=== PATIENT | female | born 2000 | race Caucasian/White ===

== ENCOUNTER 2021-03-25 14:37 | Emergency (ER) | payer OTHER, MEDICAID ==
[~2021-03-25] VITALS: Ht 170.2 cm; Wt 107.0 kg
[2021-03-25] MEDS ORDERED: ondansetron/PF 4mg/2ml inj IV ONE (15:00)
[2021-03-25 15:33] LABS: BASOPHILS # (AUTO) 0.1 X10'3 (0-0.2); BASOPHILS % (AUTO) 0.9 % (0-1); EOSINOPHILS % (AUTO) 0.2 % (0-6); HEMATOCRIT 37.3 % (35.0-45.0); HEMOGLOBIN 12.4 g/dl (12.0-16.0); LYMPHOCYTES # (AUTO) 1.2 X10'3 (1.1-4.8); LYMPHOCYTES % (AUTO) 7.9 % (21-51); MEAN CORPUSCULAR HEMOGLOBIN 26.1 PG (27.0-31.0); MEAN CORPUSCULAR HGB CONC 33.3 g/dL (33.0-36.5); MEAN CORPUSCULAR VOLUME 78.5 FL (78-98); MEAN PLATELET VOLUME 10.1 FL (7.4-10.4); MONOCYTES # (AUTO) 0.6 X10'3 (0-0.9); MONOCYTES % (AUTO) 4.3 % (2-12); NEUTROPHILS # (AUTO) 12.7 X10'3 (1.8-7.7); NEUTROPHILS % (AUTO) 86.7 % (42-75); PLATELET COUNT 231 X10'3 (140-440); RED BLOOD COUNT 4.76 X10'6 (4.20-5.60); RED CELL DISTRIBUTION WIDTH 15.8 % (11.5-14.5); WHITE BLOOD COUNT 14.6 X10'3 (4.5-11.0)
[2021-03-25 15:38] LABS: ALANINE AMINOTRANSFERASE 59 U/L (12-78); ALBUMIN 3.9 G/DL (3.4-5.0); ALBUMIN/GLOBULIN RATIO 1.1 (1.1-1.5); ALKALINE PHOSPHATASE 56 IU/L (20-180); ANION GAP 11 (8-16); BILIRUBIN,TOTAL 0.6 MG/DL (0.1-1.0); BLOOD UREA NITROGEN 12 MG/DL (7-18); BUN/CREATININE RATIO 15.8 (6.6-38.0); CALCIUM 8.9 MG/DL (8.5-10.1); CHLORIDE 105 MMOL/L (99-107); CREATININE 0.76 MG/DL (0.40-0.90); GLUCOSE 88 MG/DL (70-104); LIPASE < 50 U/L (73-393); SODIUM 144 MMOL/L (135-145); TOTAL PROTEIN 7.5 G/DL (6.4-8.2); eGFR > 90 ML/MIN
[2021-03-25 15:47] LABS: ASPARTATE AMINO TRANSFERASE 39 U/L (10-37)
[2021-03-25 15:48] LABS: POTASSIUM 3.7 MMOL/L (3.5-5.1)
[2021-03-25 16:06] LABS: URINE HCG NEGATIVE (NEG)
[2021-03-25 16:07] LABS: CLARITY,URINE TURBID (Clear); COLOR,URINE YELLOW (Yellow); GLUCOSE, URINE NEGATIVE (Neg); KETONES,URINE >=80 mg/dl (Neg); LEUKOCYTE ESTERASE ,URINE NEGATIVE (Neg); NITRITES, URINE NEGATIVE (Neg); OCCULT BLOOD,URINE NEGATIVE (Neg); PH,URINE 8.5 (4.8-8.0); PROTEIN,URINE TRACE mg/dl (Neg)
[2021-03-25 16:11] LABS: UA COLLECTION TYPE CLN CATCH MIDSTREAM
[2021-03-25 16:13] LABS: AMORPHOUS PHOSPHATES 3+; BACTERIA,URINE 2+ /HPF (Neg); MUCUS STRANDS MANY /LPF (Neg); RBC,URINE NONE SEEN /HPF (0-2); SQUAMOUS EPITHELIAL CELL,UR MANY /LPF (FEW); WBC,URINE 0-4 /HPF (0-4)
[2021-03-25] MEDS ORDERED: ketorolac tromethamine 15mg/ml inj. IM ONE (16:30)
[2021-03-25 17:03] VITALS: BP 126/81
[2021-03-25] MEDS ORDERED: mag hydrox/Alum hydrox/simeth 30ml oral suspension PO ONE (18:20)
[2021-03-25] MEDS ORDERED: LIDOcaine Viscous 15ml cup MM PRN (18:20)
[2021-03-25] MEDS ORDERED: acetaminophen 325mg tablet PO ONE (18:20)
[2021-03-25] MEDS ORDERED: OMEP40CA21 PO (18:38)
[2021-03-25] MEDS ORDERED: diphenhydrAMINE 50 mg/ml inj IV ONE (19:00)
[2021-03-25] MEDS ORDERED: famotidine/PF 10 mg/ml inj IV ONE (19:00)
[2021-03-26] MEDS ORDERED: PRED20TA PO (03:15)
[2021-03-26] MEDS ORDERED: EPIN0.3P3 IM (03:15)
[2021-03-26] MEDS ORDERED: ONDA4TAB6 PO (03:16)
== END 2021-03-25 19:25 | disposition home or self-care (01) ==
LOC: ER 14:38
DX: R10.31 Right lower quadrant pain (principal); R11.10 Vomiting, unspecified; K21.9 Gastro-esophageal reflux disease without esophagitis; G89.29 Other chronic pain; F12.90 Cannabis use, unspecified, uncomplicated; Z79.899 Other long term (current) drug therapy
CPT/HCPCS: 74176; 76856; 80053; 81001; 81025; 83690; 85025; 93976; 96372; 96374; 96375; 99285; J1200; J1885; J2405

== ENCOUNTER 2021-03-26 01:19 | Emergency (ER) | payer OTHER, MEDICAID ==
[~2021-03-26] VITALS: Ht 170.2 cm; Wt 105.0 kg
[~2021-03-26 01:19] MED LIST: OMEP40CA21 PO
[2021-03-26] MEDS ORDERED: epiNEPHrine 1 mg/ml inj IM STA (01:23)
[2021-03-26] MEDS ORDERED: dexamethasone 4mg tablet PO ONE (01:25)
[2021-03-26 02:52] VITALS: BP 123/53
[2021-03-26] MEDS ORDERED: PRED20TA PO (03:15)
[2021-03-26] MEDS ORDERED: EPIN0.3P3 IM (03:15)
[2021-03-26] MEDS ORDERED: ONDA4TAB6 PO (03:16)
== END 2021-03-26 03:23 | disposition home or self-care (01) ==
LOC: ER 01:19
DX: T78.2XXA Anaphylactic shock, unspecified, initial encounter (principal); L50.9 Urticaria, unspecified; K21.9 Gastro-esophageal reflux disease without esophagitis; G89.29 Other chronic pain; F12.90 Cannabis use, unspecified, uncomplicated; Z79.899 Other long term (current) drug therapy; X58.XXXA Exposure to other specified factors, initial encounter; Y93.89 Activity, other specified; Y92.89 Other specified places as the place of occurrence of the external cause; Y99.8 Other external cause status
CPT/HCPCS: 96372; 99291; J0171

== ENCOUNTER 2021-03-26 03:54 | Emergency (ER) | payer OTHER, MEDICAID ==
[~2021-03-26] VITALS: Ht 170.2 cm; Wt 106.8 kg
[~2021-03-26 03:54] MED LIST changes: +EPIN0.3P3 IM; +ONDA4TAB6 PO; +PRED20TA PO
[2021-03-26 04:09] VITALS: BP 128/80
[2021-03-26] MEDS ORDERED: epiNEPHrine 1 mg/ml inj IM STA (04:57)
--- NOTE | 2021-03-26 06:45 | NUR ---
Patient resting quietly; friend at bedside. No rash or hives noted on face or back.
== END 2021-03-26 08:10 | disposition home or self-care (01) ==
LOC: ER 03:54
DX: L50.0 Allergic urticaria (principal); K21.9 Gastro-esophageal reflux disease without esophagitis; G89.29 Other chronic pain; F12.90 Cannabis use, unspecified, uncomplicated; Z88.8 Allergy status to other drugs, medicaments and biological substances; Z79.899 Other long term (current) drug therapy
CPT/HCPCS: 96372; 99291; J0171

== ENCOUNTER 2021-03-26 08:49 | Emergency (ER) | payer OTHER, MEDICAID ==
[~2021-03-26] VITALS: Ht 170.2 cm; Wt 106.8 kg
[2021-03-26 09:01] VITALS: BP 139/78
== END 2021-03-26 09:17 | disposition home or self-care (01) ==
LOC: ER 08:50
DX: L50.0 Allergic urticaria (principal); R20.8 Other disturbances of skin sensation; K21.9 Gastro-esophageal reflux disease without esophagitis; G89.29 Other chronic pain; F12.90 Cannabis use, unspecified, uncomplicated; Z88.8 Allergy status to other drugs, medicaments and biological substances; Z79.899 Other long term (current) drug therapy
CPT/HCPCS: 93005; 99283

== ENCOUNTER 2021-06-12 10:27 | Emergency (ER) | payer MEDICAID, OTHER ==
[~2021-06-12] VITALS: Ht 170.2 cm; Wt 113.2 kg
[~2021-06-12 10:27] MED LIST changes: -OMEP40CA21 PO; -PRED20TA PO
[2021-06-12 10:31] VITALS: BP 145/88
[2021-06-12] MEDS ORDERED: mag hydrox/Alum hydrox/simeth 30ml oral suspension PO ONE (12:30)
[2021-06-12] MEDS ORDERED: famotidine 20mg tablet PO ONE (12:30)
[2021-06-12] MEDS ORDERED: ondansetron 4mg rapidly disintigrating tab PO ONE (12:30)
--- NOTE | 2021-06-12 12:58 | NUR ---
Patient states that she takes famotidine daily and is not allergic to medication.
[2021-06-12 13:09] LABS: BASOPHILS % (AUTO) 0.1 % (0-1); EOSINOPHILS % (AUTO) 0.2 % (0-6); HEMATOCRIT 36.4 % (35.0-45.0); HEMOGLOBIN 11.9 g/dl (12.0-16.0); LYMPHOCYTES # (AUTO) 1.6 X10'3 (1.1-4.8); MEAN CORPUSCULAR HEMOGLOBIN 26.1 PG (27.0-31.0); MEAN CORPUSCULAR HGB CONC 32.8 g/dL (33.0-36.5); MEAN CORPUSCULAR VOLUME 79.5 FL (78-98); MEAN PLATELET VOLUME 9.6 FL (7.4-10.4); MONOCYTES # (AUTO) 0.5 X10'3 (0-0.9); MONOCYTES % (AUTO) 5.7 % (2-12); NEUTROPHILS # (AUTO) 6.6 X10'3 (1.8-7.7); PLATELET COUNT 259 X10'3 (140-440); RED BLOOD COUNT 4.58 X10'6 (4.20-5.60); RED CELL DISTRIBUTION WIDTH 15.3 % (11.5-14.5); WHITE BLOOD COUNT 8.7 X10'3 (4.5-11.0)
[2021-06-12 13:14] LABS: ALANINE AMINOTRANSFERASE 22 U/L (12-78); ALBUMIN 3.6 G/DL (3.4-5.0); ALKALINE PHOSPHATASE 58 IU/L (46-116); ANION GAP 9 (8-16); ASPARTATE AMINO TRANSFERASE 14 U/L (10-37); BILIRUBIN,TOTAL 0.3 MG/DL (0.1-1.0); BLOOD UREA NITROGEN 9 MG/DL (7-18); BUN/CREATININE RATIO 15.5 (6.6-38.0); CALCIUM 8.9 MG/DL (8.5-10.1); CHLORIDE 108 MMOL/L (99-107); CREATININE 0.58 MG/DL (0.40-0.90); GLUCOSE 86 MG/DL (70-104); LIPASE 105 U/L (73-393); POTASSIUM 3.6 MMOL/L (3.5-5.1); SODIUM 143 MMOL/L (135-145); TOTAL CARBON DIOXIDE 25.7 MMOL/L (24-32); TOTAL PROTEIN 7.2 G/DL (6.4-8.2); eGFR > 90 ML/MIN
[2021-06-12 13:15] LABS: CLARITY,URINE SLIGHTLY CLOUDY (Clear); COLOR,URINE YELLOW (Yellow); GLUCOSE, URINE NEGATIVE (Neg); KETONES,URINE TRACE mg/dl (Neg); LEUKOCYTE ESTERASE ,URINE NEGATIVE (Neg); NITRITES, URINE NEGATIVE (Neg); OCCULT BLOOD,URINE NEGATIVE (Neg); PH,URINE 6.5 (4.8-8.0); PROTEIN,URINE NEGATIVE (Neg); UROBILINOGEN,URINE 0.2 E.U/dL (0.2-1.0)
[2021-06-12 13:20] LABS: UA COLLECTION TYPE CLN CATCH MIDSTREAM
[2021-06-12 13:22] LABS: MUCUS STRANDS MANY /LPF (Neg); SQUAMOUS EPITHELIAL CELL,UR MANY /LPF (FEW)
[2021-06-12 13:23] LABS: BACTERIA,URINE 1+ /HPF (Neg); RBC,URINE 0-2 /HPF (0-2); WBC,URINE 0-4 /HPF (0-4)
[2021-06-12] MEDS ORDERED: ONDA4TAB12 PO (13:58)
[2021-06-12] MEDS ORDERED: FAMO20TA82 PO (14:09)
== END 2021-06-12 14:11 | disposition home or self-care (01) ==
LOC: ER 10:28
DX: S40.021A Contusion of right upper arm, initial encounter (principal); K29.00 Acute gastritis without bleeding; K21.9 Gastro-esophageal reflux disease without esophagitis; G89.29 Other chronic pain; F12.90 Cannabis use, unspecified, uncomplicated; Z88.8 Allergy status to other drugs, medicaments and biological substances; Z79.899 Other long term (current) drug therapy; Y04.0XXA Assault by unarmed brawl or fight, initial encounter; Y93.89 Activity, other specified; Y92.89 Other specified places as the place of occurrence of the external cause; Y99.0 Civilian activity done for income or pay
CPT/HCPCS: 36415; 80053; 81001; 83690; 85025; 99283

== ENCOUNTER 2021-06-14 08:57 | Emergency (ER) | payer OTHER ==
[~2021-06-14] VITALS: Ht 170.2 cm; Wt 113.6 kg
[~2021-06-14 08:57] MED LIST changes: +FAMO20TA82 PO; +ONDA4TAB12 PO
[2021-06-14] MEDS ORDERED: normal saline 1000ML IV soln IVB ONE ×2 (09:25→10:40)
[2021-06-14 10:00] LABS: BASOPHILS % (AUTO) 0.2 % (0-1); EOSINOPHILS # (AUTO) 0.1 X10'3 (0-0.9); EOSINOPHILS % (AUTO) 0.6 % (0-6); HEMATOCRIT 37.7 % (35.0-45.0); HEMOGLOBIN 12.4 g/dl (12.0-16.0); LYMPHOCYTES # (AUTO) 1.5 X10'3 (1.1-4.8); MEAN CORPUSCULAR HGB CONC 32.9 g/dL (33.0-36.5); MEAN CORPUSCULAR VOLUME 79.1 FL (78-98); MEAN PLATELET VOLUME 9.4 FL (7.4-10.4); MONOCYTES # (AUTO) 0.5 X10'3 (0-0.9); MONOCYTES % (AUTO) 5.3 % (2-12); NEUTROPHILS # (AUTO) 7.9 X10'3 (1.8-7.7); NEUTROPHILS % (AUTO) 78.9 % (42-75); PLATELET COUNT 293 X10'3 (140-440); RED BLOOD COUNT 4.77 X10'6 (4.20-5.60); RED CELL DISTRIBUTION WIDTH 15.2 % (11.5-14.5)
[2021-06-14 10:19] LABS: ALANINE AMINOTRANSFERASE 25 U/L (12-78); ALBUMIN 3.7 G/DL (3.4-5.0); ALKALINE PHOSPHATASE 58 IU/L (46-116); ANION GAP 11 (8-16); ASPARTATE AMINO TRANSFERASE 19 U/L (10-37); BILIRUBIN,TOTAL 0.3 MG/DL (0.1-1.0); BLOOD UREA NITROGEN 8 MG/DL (7-18); BUN/CREATININE RATIO 13.3 (6.6-38.0); CALCIUM 8.8 MG/DL (8.5-10.1); CHLORIDE 108 MMOL/L (99-107); ETHANOL < 0.010 GM/DL (0.0-0.010); GLUCOSE 108 MG/DL (70-104); LIPASE 175 U/L (73-393); POTASSIUM 3.6 MMOL/L (3.5-5.1); SODIUM 143 MMOL/L (135-145); TOTAL CARBON DIOXIDE 23.7 MMOL/L (24-32); TOTAL PROTEIN 7.3 G/DL (6.4-8.2); eGFR > 90 ML/MIN
[2021-06-14] MEDS ORDERED: haloperidol lactate 5mg/ml inj IM ONE (10:40)
[2021-06-14] MEDS ORDERED: ondansetron/PF 4mg/2ml inj IV ONE (10:40)
[2021-06-14] MEDS ORDERED: ketorolac trometh. 30mg/ml inj. IV ONE (10:40)
[2021-06-14] MEDS ORDERED: LORazepam 2 mg/ml vial IV ONE (10:40)
[2021-06-14] MEDS ORDERED: diphenhydrAMINE 50 mg/ml inj IV ONE (10:40)
--- NOTE | 2021-06-14 11:14 | NUR ---
patient asleep, visitor at bedside.
--- NOTE | 2021-06-14 11:34 | NUR ---
DR ROBLERO MADE AWARE OF PATIENT CONTINUED COMPLAINT OF ABD PAIN 11/09. PATIENT PALE, DIAPHORETIC, VISITOR AT BEDSIDE.
[2021-06-14] MEDS ORDERED: sucralfate 1gm/10ml UD suspension PO STA (12:06)
[2021-06-14] MEDS ORDERED: LIDOcaine Viscous 15ml cup MM ONE (12:10)
[2021-06-14] MEDS ORDERED: mag hydrox/Alum hydrox/simeth 30ml oral suspension PO ONE (12:10)
[2021-06-14] MEDS: sucralfate 1 gm tablet PO STA ×2 (12:16→12:22)
[2021-06-14] MEDS ORDERED: sucralfate 1 gm tablet PO ONE (12:20)
[2021-06-14 13:48] VITALS: BP 110/48
[2021-06-15] MEDS ORDERED: EPIN0.3P3 IM (17:55)
== END 2021-06-14 13:50 | disposition home or self-care (01) ==
LOC: ER 08:58
DX: R11.15 Cyclical vomiting syndrome unrelated to migraine (principal); K21.9 Gastro-esophageal reflux disease without esophagitis; G89.29 Other chronic pain; R19.7 Diarrhea, unspecified; R10.30 Lower abdominal pain, unspecified; F12.90 Cannabis use, unspecified, uncomplicated; Z88.8 Allergy status to other drugs, medicaments and biological substances; Z79.899 Other long term (current) drug therapy
CPT/HCPCS: 36415; 80053; 80320; 83690; 85025; 96361; 96372; 96374; 96375; 99284; J1200; J1630; J1885; J2060; J2405; J7030

== ENCOUNTER 2021-06-15 15:56 | Emergency (ER) | payer OTHER ==
[~2021-06-15] VITALS: Ht 170.2 cm; Wt 136.0 kg
[2021-06-15 15:56] VITALS: BP 123/68
[2021-06-15] MEDS ORDERED: EPIN0.3P3 IM (17:55)
[2021-06-16] MEDS ORDERED: LORA-269 PO (17:58)
== END 2021-06-15 18:21 | disposition home or self-care (01) ==
LOC: ER 15:56
DX: G24.8 Other dystonia (principal); T43.225A Adverse effect of selective serotonin reuptake inhibitors, initial encounter; Y92.89 Other specified places as the place of occurrence of the external cause; K21.9 Gastro-esophageal reflux disease without esophagitis; G89.29 Other chronic pain; M54.9 Dorsalgia, unspecified; F12.10 Cannabis abuse, uncomplicated; Z88.8 Allergy status to other drugs, medicaments and biological substances; Z88.5 Allergy status to narcotic agent; Z79.899 Other long term (current) drug therapy
CPT/HCPCS: 99284

== ENCOUNTER 2021-06-16 17:04 | Emergency (ER) | payer OTHER ==
[~2021-06-16] VITALS: Ht 170.2 cm; Wt 113.6 kg
[2021-06-16] MEDS ORDERED: diphenhydrAMINE 25mg capsule PO ONE (17:15)
[2021-06-16] MEDS ORDERED: LORazepam 2 mg/ml vial IV ONE (17:15)
[2021-06-16 17:16] VITALS: BP 151/102
[2021-06-16] MEDS ORDERED: benztropine 1mg tablet PO STA (17:23)
[2021-06-16] MEDS ORDERED: LORazepam 1 MG tablet PO ONE (17:35)
[2021-06-16] MEDS ORDERED: LORA-269 PO (17:58)
== END 2021-06-16 18:33 | disposition home or self-care (01) ==
LOC: ER 17:05
DX: F41.9 Anxiety disorder, unspecified (principal); G24.9 Dystonia, unspecified; F32.A Depression, unspecified; R06.02 Shortness of breath; K21.9 Gastro-esophageal reflux disease without esophagitis; F12.90 Cannabis use, unspecified, uncomplicated; G89.29 Other chronic pain; Z88.8 Allergy status to other drugs, medicaments and biological substances; Z79.899 Other long term (current) drug therapy
CPT/HCPCS: 99284; Q0163

== ENCOUNTER 2021-09-13 08:40 | Emergency (ER) | payer OTHER, BC ==
[~2021-09-13] VITALS: Ht 170.2 cm; Wt 112.3 kg
[~2021-09-13 08:40] MED LIST changes: +LORA-269 PO
[2021-09-13] MEDS ORDERED: normal saline 1000ML IV soln IVB ONE (10:10)
[2021-09-13 10:22] LABS: BASOPHILS % (AUTO) 0.2 % (0-1); EOSINOPHILS # (AUTO) 0.1 X10'3 (0-0.9); EOSINOPHILS % (AUTO) 0.8 % (0-6); HEMATOCRIT 36.7 % (35.0-45.0); HEMOGLOBIN 12.4 g/dl (12.0-16.0); LYMPHOCYTES # (AUTO) 1.6 X10'3 (1.1-4.8); LYMPHOCYTES % (AUTO) 16.3 % (21-51); MEAN CORPUSCULAR HEMOGLOBIN 26.6 PG (27.0-31.0); MEAN CORPUSCULAR HGB CONC 33.8 g/dL (33.0-36.5); MEAN CORPUSCULAR VOLUME 78.7 FL (78-98); MEAN PLATELET VOLUME 9.3 FL (7.4-10.4); MONOCYTES # (AUTO) 0.6 X10'3 (0-0.9); NEUTROPHILS # (AUTO) 7.5 X10'3 (1.8-7.7); NEUTROPHILS % (AUTO) 76.7 % (42-75); PLATELET COUNT 291 X10'3 (140-440); RED BLOOD COUNT 4.67 X10'6 (4.20-5.60); RED CELL DISTRIBUTION WIDTH 14.7 % (11.5-14.5); WHITE BLOOD COUNT 9.8 X10'3 (4.5-11.0)
[2021-09-13 10:34] LABS: ALANINE AMINOTRANSFERASE 15 U/L (12-78); ALBUMIN 3.8 G/DL (3.4-5.0); ALKALINE PHOSPHATASE 61 IU/L (46-116); ANION GAP 8 (8-16); ASPARTATE AMINO TRANSFERASE 13 U/L (10-37); BILIRUBIN,TOTAL 0.2 MG/DL (0.1-1.0); BLOOD UREA NITROGEN 8 MG/DL (7-18); BUN/CREATININE RATIO 12.5 (6.6-38.0); CALCIUM 9.4 MG/DL (8.5-10.1); CHLORIDE 106 MMOL/L (99-107); CREATININE 0.64 MG/DL (0.40-0.90); GLUCOSE 95 MG/DL (70-104); POTASSIUM 3.9 MMOL/L (3.5-5.1); SODIUM 141 MMOL/L (135-145); TOTAL PROTEIN 7.8 G/DL (6.4-8.2); eGFR > 90 ML/MIN
[2021-09-13 11:27] VITALS: BP 133/97
[2021-09-13] MEDS ORDERED: ONDA8TAB13 PO (11:36)
[2021-09-13] MEDS ORDERED: ONDA4TAB12 PO (14:44)
== END 2021-09-13 12:27 | disposition home or self-care (01) ==
LOC: ER 08:40
DX: K58.9 Irritable bowel syndrome, unspecified (principal); R11.2 Nausea with vomiting, unspecified; R19.7 Diarrhea, unspecified; K21.9 Gastro-esophageal reflux disease without esophagitis; G89.29 Other chronic pain; F12.90 Cannabis use, unspecified, uncomplicated; Z88.8 Allergy status to other drugs, medicaments and biological substances; Z79.899 Other long term (current) drug therapy
CPT/HCPCS: 36415; 80053; 85025; 96360; 99283; J7030

== ENCOUNTER 2021-09-20 07:28 | Emergency (ER) | payer OTHER, BC ==
[~2021-09-20] VITALS: Ht 170.2 cm; Wt 112.3 kg
[~2021-09-20 07:28] MED LIST changes: +ONDA8TAB13 PO
[2021-09-20 07:48] LABS: BASOPHILS % (AUTO) 0.2 % (0-1); EOSINOPHILS % (AUTO) 0.2 % (0-6); HEMATOCRIT 36.8 % (35.0-45.0); HEMOGLOBIN 12.2 g/dl (12.0-16.0); LYMPHOCYTES # (AUTO) 1.6 X10'3 (1.1-4.8); LYMPHOCYTES % (AUTO) 19.4 % (21-51); MEAN CORPUSCULAR HEMOGLOBIN 26.1 PG (27.0-31.0); MEAN PLATELET VOLUME 9.2 FL (7.4-10.4); MONOCYTES # (AUTO) 0.6 X10'3 (0-0.9); MONOCYTES % (AUTO) 7.4 % (2-12); NEUTROPHILS # (AUTO) 6.2 X10'3 (1.8-7.7); NEUTROPHILS % (AUTO) 72.8 % (42-75); PLATELET COUNT 283 X10'3 (140-440); RED BLOOD COUNT 4.66 X10'6 (4.20-5.60); RED CELL DISTRIBUTION WIDTH 14.9 % (11.5-14.5); WHITE BLOOD COUNT 8.5 X10'3 (4.5-11.0)
--- NOTE | 2021-09-20 08:05 | NUR ---
PATIENT STATES SHE IS UNABLE TO VOID AT THIS TIME.
[2021-09-20 08:08] VITALS: BP 128/81
[2021-09-20 08:10] LABS: ALANINE AMINOTRANSFERASE 24 U/L (12-78); ALBUMIN/GLOBULIN RATIO 1.1 (1.1-1.5); ALKALINE PHOSPHATASE 52 IU/L (46-116); ANION GAP 13 (8-16); ASPARTATE AMINO TRANSFERASE 17 U/L (10-37); BILIRUBIN,TOTAL 0.4 MG/DL (0.1-1.0); BLOOD UREA NITROGEN 12 MG/DL (7-18); BUN/CREATININE RATIO 13.6 (6.6-38.0); CALCIUM 9.1 MG/DL (8.5-10.1); CHLORIDE 105 MMOL/L (99-107); CREATININE 0.88 MG/DL (0.40-0.90); GLUCOSE 94 MG/DL (70-104); LIPASE < 50 U/L (73-393); POTASSIUM 3.4 MMOL/L (3.5-5.1); SODIUM 143 MMOL/L (135-145); TOTAL CARBON DIOXIDE 24.6 MMOL/L (24-32); TOTAL PROTEIN 7.8 G/DL (6.4-8.2); eGFR 81 ML/MIN
[2021-09-20] MEDS ORDERED: LIDOcaine Viscous 15ml cup MM STA (09:28)
[2021-09-20] MEDS ORDERED: metoclopramide 5 mg/ml inj IV ONE (09:30)
[2021-09-20] MEDS ORDERED: mag hydrox/Alum hydrox/simeth 30ml oral suspension PO ONE (09:30)
[2021-09-20] MEDS ORDERED: LORazepam 2 mg/ml vial IV ONE (09:30)
[2021-09-20] MEDS ORDERED: normal saline 1000ml 1,000 ML IV ONE ×2 (09:30→10:25)
[2021-09-20] MEDS ORDERED: potassium Cl 20 mEq SR tablet PO ONE (10:25)
[2021-09-20] MEDS ORDERED: FAMO20TA44 PO (10:29)
[2021-09-20 10:43] LABS: URINE HCG NEGATIVE (NEG)
[2021-09-20 10:49] LABS: URINE AMPHETAMINE SCREEN NEGATIVE (Neg); URINE BARBITUATE SCREEN NEGATIVE (Neg); URINE BENZODIAZEPINES SCREEN NEGATIVE (Neg); URINE CANNABINOID SCREEN POSITIVE (Neg); URINE COCAINE SCREEN NEGATIVE (Neg); URINE METHADONE SCREEN NEGATIVE (Neg); URINE OPIATE SCREEN POSITIVE (Neg); URINE PHENCYCLIDINE SCREEN NEGATIVE (Neg)
[2021-09-20 10:53] LABS: CLARITY,URINE CLOUDY (Clear); COLOR,URINE YELLOW (Yellow); GLUCOSE, URINE NEGATIVE (Neg); KETONES,URINE >=80 mg/dl (Neg); LEUKOCYTE ESTERASE ,URINE NEGATIVE (Neg); NITRITES, URINE NEGATIVE (Neg); OCCULT BLOOD,URINE SMALL (Neg); PROTEIN,URINE 30 mg/dl (Neg); UROBILINOGEN,URINE 0.2 E.U/dL (0.2-1.0)
[2021-09-20 10:55] LABS: UA COLLECTION TYPE VOIDED
[2021-09-20 11:03] LABS: SQUAMOUS EPITHELIAL CELL,UR MANY /LPF (FEW)
[2021-09-20 11:05] LABS: BACTERIA,URINE 1+ /HPF (Neg); MUCUS STRANDS MANY /LPF (Neg); WBC,URINE 0-4 /HPF (0-4)
== END 2021-09-20 10:56 | disposition home or self-care (01) ==
LOC: ER 07:29
DX: R10.84 Generalized abdominal pain (principal); R11.2 Nausea with vomiting, unspecified; R19.7 Diarrhea, unspecified; F12.90 Cannabis use, unspecified, uncomplicated; G89.29 Other chronic pain; K21.9 Gastro-esophageal reflux disease without esophagitis; Z88.8 Allergy status to other drugs, medicaments and biological substances; Z79.899 Other long term (current) drug therapy
CPT/HCPCS: 36415; 80053; 80305; 81001; 81025; 83690; 85025; 96361; 96374; 96375; 99284; J2060; J2765; J7030

== ENCOUNTER 2021-09-24 10:11 | Emergency (ER) | payer OTHER, BC ==
[~2021-09-24] VITALS: Ht 170.2 cm; Wt 110.0 kg
[~2021-09-24 10:11] MED LIST changes: +FAMO20TA44 PO
[2021-09-24 10:54] LABS: BASOPHILS % (AUTO) 0.3 % (0-1); EOSINOPHILS % (AUTO) 0.5 % (0-6); HEMATOCRIT 37.7 % (35.0-45.0); HEMOGLOBIN 12.4 g/dl (12.0-16.0); LYMPHOCYTES # (AUTO) 1.1 X10'3 (1.1-4.8); LYMPHOCYTES % (AUTO) 14.4 % (21-51); MEAN CORPUSCULAR HEMOGLOBIN 26.1 PG (27.0-31.0); MEAN CORPUSCULAR HGB CONC 32.7 g/dL (33.0-36.5); MEAN CORPUSCULAR VOLUME 79.6 FL (78-98); MEAN PLATELET VOLUME 9.6 FL (7.4-10.4); MONOCYTES # (AUTO) 0.5 X10'3 (0-0.9); MONOCYTES % (AUTO) 6.6 % (2-12); NEUTROPHILS % (AUTO) 78.2 % (42-75); PLATELET COUNT 266 X10'3 (140-440); RED BLOOD COUNT 4.74 X10'6 (4.20-5.60); RED CELL DISTRIBUTION WIDTH 14.8 % (11.5-14.5); WHITE BLOOD COUNT 7.7 X10'3 (4.5-11.0)
[2021-09-24 11:00] LABS: URINE HCG NEGATIVE (NEG)
[2021-09-24 11:01] LABS: CLARITY,URINE CLOUDY (Clear); COLOR,URINE RED (Yellow)
[2021-09-24 11:06] LABS: UA COLLECTION TYPE CLN CATCH MIDSTREAM
[2021-09-24 11:07] LABS: ALANINE AMINOTRANSFERASE 32 U/L (12-78); ALBUMIN 3.8 G/DL (3.4-5.0); ALBUMIN/GLOBULIN RATIO 1.1 (1.1-1.5); ALKALINE PHOSPHATASE 49 IU/L (46-116); ANION GAP 13 (8-16); ASPARTATE AMINO TRANSFERASE 17 U/L (10-37); BILIRUBIN,TOTAL 0.4 MG/DL (0.1-1.0); BLOOD UREA NITROGEN 9 MG/DL (7-18); CALCIUM 8.9 MG/DL (8.5-10.1); CHLORIDE 106 MMOL/L (99-107); CREATININE 0.69 MG/DL (0.40-0.90); GLUCOSE 99 MG/DL (70-104); LIPASE < 50 U/L (73-393); POTASSIUM 3.5 MMOL/L (3.5-5.1); SODIUM 144 MMOL/L (135-145); TOTAL CARBON DIOXIDE 24.6 MMOL/L (24-32); TOTAL PROTEIN 7.4 G/DL (6.4-8.2); eGFR > 90 ML/MIN
[2021-09-24] MEDS ORDERED: normal saline 1000ml 1,000 ML IV ONE (11:10)
[2021-09-24] MEDS ORDERED: normal saline 1000ML IV soln IVB ONE (11:10)
[2021-09-24 11:11] LABS: RBC,URINE TNTC /HPF (0-2)
[2021-09-24 11:13] LABS: BACTERIA,URINE 1+ /HPF (Neg); MUCUS STRANDS FEW /LPF (Neg); SQUAMOUS EPITHELIAL CELL,UR MODERATE /LPF (FEW)
[2021-09-24] MEDS ORDERED: haloperidol lactate 5mg/ml inj IM ONE (11:15)
[2021-09-24] MEDS ORDERED: pantoprazole 40 MG vial IV ONE (11:15)
[2021-09-24] MEDS ORDERED: morphine 2 MG/ML inj. syringe IV PRN (11:15)
[2021-09-24] MEDS ORDERED: ketorolac tromethamine 15mg/ml inj. IV ONE (11:15)
[2021-09-24] MEDS ORDERED: proCHLORperazine 10 MG/2 ml inj IM ONE (11:20)
[2021-09-24 11:22] LABS: MAGNESIUM 1.9 MG/DL (1.5-2.4)
[2021-09-24 12:06] LABS: URINE AMPHETAMINE SCREEN NEGATIVE (Neg); URINE BARBITUATE SCREEN NEGATIVE (Neg); URINE BENZODIAZEPINES SCREEN NEGATIVE (Neg); URINE CANNABINOID SCREEN POSITIVE (Neg); URINE COCAINE SCREEN NEGATIVE (Neg); URINE METHADONE SCREEN NEGATIVE (Neg); URINE OPIATE SCREEN NEGATIVE (Neg); URINE PHENCYCLIDINE SCREEN NEGATIVE (Neg)
[2021-09-24] MEDS ORDERED: pantoprazole 40MG/NS 100ML BAG 100 ML IV ONE (12:20)
[2021-09-24 12:40] VITALS: BP 138/92
== END 2021-09-24 13:36 | disposition home or self-care (01) ==
LOC: ER 10:12
DX: F12.188 Cannabis abuse with other cannabis-induced disorder (principal); K21.9 Gastro-esophageal reflux disease without esophagitis; G89.29 Other chronic pain; M54.9 Dorsalgia, unspecified; Z88.8 Allergy status to other drugs, medicaments and biological substances; Z79.899 Other long term (current) drug therapy
CPT/HCPCS: 36415; 80053; 80305; 81001; 81025; 83690; 83735; 85025; 87088; 96361; 96372; 96374; 96375; 99284; C9113; J0780; J1630; J1885; J7030

== ENCOUNTER 2022-01-08 09:09 | Emergency (ER) | payer BC, OTHER ==
[~2022-01-08] VITALS: Ht 170.2 cm; Wt 109.1 kg
[2022-01-08] MEDS ORDERED: normal saline 1000ML IV soln IVB ONE ×2 (09:20→10:15)
[2022-01-08] MEDS ORDERED: metoclopramide 5 mg/ml inj IV ONE (09:20)
[2022-01-08] MEDS ORDERED: famotidine/PF 10 mg/ml inj IV ONE (09:20)
[2022-01-08] MEDS ORDERED: LORazepam 2 mg/ml vial IV ONE (09:25)
[2022-01-08] MEDS ORDERED: haloperidol lactate 5mg/ml inj IM ONE (10:16)
[2022-01-08 10:54] LABS: BASOPHILS % (AUTO) 0.2 % (0-1); EOSINOPHILS % (AUTO) 0.1 % (0-6); HEMATOCRIT 36.8 % (35.0-45.0); HEMOGLOBIN 12.1 g/dl (12.0-16.0); LYMPHOCYTES % (AUTO) 8.3 % (21-51); MEAN CORPUSCULAR HEMOGLOBIN 26.2 PG (27.0-31.0); MEAN CORPUSCULAR HGB CONC 32.8 g/dL (33.0-36.5); MEAN CORPUSCULAR VOLUME 79.7 FL (78-98); MEAN PLATELET VOLUME 9.6 FL (7.4-10.4); MONOCYTES # (AUTO) 0.5 X10'3 (0-0.9); NEUTROPHILS # (AUTO) 10.6 X10'3 (1.8-7.7); NEUTROPHILS % (AUTO) 87.4 % (42-75); PLATELET COUNT 260 X10'3 (140-440); RED BLOOD COUNT 4.61 X10'6 (4.20-5.60); RED CELL DISTRIBUTION WIDTH 15.7 % (11.5-14.5); WHITE BLOOD COUNT 12.1 X10'3 (4.5-11.0)
[2022-01-08 11:18] LABS: ALANINE AMINOTRANSFERASE 15 U/L (12-78); ALBUMIN 3.6 G/DL (3.4-5.0); ALKALINE PHOSPHATASE 62 IU/L (46-116); ANION GAP 9 (8-16); ASPARTATE AMINO TRANSFERASE 13 U/L (10-37); BILIRUBIN,TOTAL 0.3 MG/DL (0.1-1.0); BLOOD UREA NITROGEN 8 MG/DL (7-18); BUN/CREATININE RATIO 11.1 (6.6-38.0); CALCIUM 9.1 MG/DL (8.5-10.1); CHLORIDE 109 MMOL/L (99-107); CREATININE 0.72 MG/DL (0.40-0.90); GLUCOSE 127 MG/DL (70-104); LIPASE 55 U/L (73-393); POTASSIUM 4.1 MMOL/L (3.5-5.1); SODIUM 144 MMOL/L (135-145); TOTAL CARBON DIOXIDE 26.1 MMOL/L (24-32); TOTAL PROTEIN 7.1 G/DL (6.4-8.2); eGFR > 90 ML/MIN
[2022-01-08 11:44] VITALS: BP 125/77
[2022-01-08 12:16] LABS: URINE HCG NEGATIVE (NEG)
[2022-01-08 12:20] LABS: CLARITY,URINE CLOUDY (Clear); COLOR,URINE YELLOW (Yellow); GLUCOSE, URINE NEGATIVE (Neg); KETONES,URINE 40 mg/dl (Neg); LEUKOCYTE ESTERASE ,URINE NEGATIVE (Neg); NITRITES, URINE NEGATIVE (Neg); OCCULT BLOOD,URINE NEGATIVE (Neg); PH,URINE 8.5 (4.8-8.0); PROTEIN,URINE 30 mg/dl (Neg); UROBILINOGEN,URINE 0.2 E.U/dL (0.2-1.0)
[2022-01-08 12:25] LABS: UA COLLECTION TYPE VOIDED
[2022-01-08 12:26] LABS: AMORPHOUS PHOSPHATES 3+
[2022-01-08 12:27] LABS: RBC,URINE NONE SEEN /HPF (0-2); SQUAMOUS EPITHELIAL CELL,UR MANY /LPF (FEW); WBC,URINE 0-4 /HPF (0-4)
[2022-01-08 12:28] LABS: BACTERIA,URINE 1+ /HPF (Neg)
== END 2022-01-08 13:05 | disposition home or self-care (01) ==
LOC: ER 09:09
DX: R10.84 Generalized abdominal pain (principal); R11.15 Cyclical vomiting syndrome unrelated to migraine; R11.2 Nausea with vomiting, unspecified; K21.9 Gastro-esophageal reflux disease without esophagitis; G89.29 Other chronic pain; F12.90 Cannabis use, unspecified, uncomplicated; Z88.8 Allergy status to other drugs, medicaments and biological substances; Z79.899 Other long term (current) drug therapy
CPT/HCPCS: 36415; 80053; 81001; 81025; 83690; 85025; 96361; 96372; 96374; 96375; 99284; J1630; J2060; J2765; J3490; J7030

== ENCOUNTER 2022-01-09 09:57 | Emergency (ER) | payer BC ==
[~2022-01-09] VITALS: Ht 170.2 cm; Wt 113.0 kg
[2022-01-09 11:00] VITALS: BP 126/95
[2022-01-09] MEDS ORDERED: diphenhydrAMINE 25mg capsule PO ONE (12:20)
[2022-01-09] MEDS ORDERED: diphenhydrAMINE 50 mg/ml inj IV ONE (13:05)
== END 2022-01-09 14:19 | disposition home or self-care (01) ==
LOC: ER 09:58
DX: G24.09 Other drug induced dystonia (principal); T50.905A Adverse effect of unspecified drugs, medicaments and biological substances, initial encounter; K21.9 Gastro-esophageal reflux disease without esophagitis; G89.29 Other chronic pain; F12.90 Cannabis use, unspecified, uncomplicated; Z88.8 Allergy status to other drugs, medicaments and biological substances; Z79.899 Other long term (current) drug therapy; Y92.89 Other specified places as the place of occurrence of the external cause
CPT/HCPCS: 96374; 99283; J1200; Q0163

== ENCOUNTER 2022-01-09 20:05 | Emergency (ER) | payer BC ==
[~2022-01-09] VITALS: Ht 170.2 cm; Wt 109.0 kg
[2022-01-09 20:45] VITALS: BP 143/77
== END 2022-01-09 21:21 | disposition home or self-care (01) ==
LOC: ER 20:06
DX: Z13.89 Encounter for screening for other disorder (principal); G24.9 Dystonia, unspecified; R11.10 Vomiting, unspecified; K21.9 Gastro-esophageal reflux disease without esophagitis; G89.29 Other chronic pain; F12.90 Cannabis use, unspecified, uncomplicated; Z88.8 Allergy status to other drugs, medicaments and biological substances; Z79.899 Other long term (current) drug therapy
CPT/HCPCS: 99282; 99283

== ENCOUNTER 2022-02-13 17:27 | Emergency (ER) | payer BC ==
[~2022-02-13] VITALS: Ht 170.2 cm; Wt 104.0 kg
[2022-02-13 18:41] VITALS: BP 135/93
[2022-02-14] MEDS ORDERED: MECL-231 PO (11:53)
[2022-02-14] MEDS ORDERED: PANT40TA54 PO (11:53)
[2022-02-14] MEDS ORDERED: LORA-269 PO (11:53)
== END 2022-02-13 22:38 | disposition left against medical advice (07) ==
LOC: ER 17:29
DX: F41.1 Generalized anxiety disorder (principal); Z53.21 Procedure and treatment not carried out due to patient leaving prior to being seen by health care provider

== ENCOUNTER 2022-02-14 06:57 | Emergency (ER) | payer BC ==
[~2022-02-14] VITALS: Ht 170.2 cm; Wt 104.5 kg
[2022-02-14] MEDS ORDERED: normal saline 1000ML IV soln IVB ONE (07:20)
[2022-02-14] MEDS ORDERED: metoclopramide 5 mg/ml inj IV ONE (07:25)
[2022-02-14] MEDS ORDERED: LORazepam 2 mg/ml vial IV ONE (07:25)
[2022-02-14 08:10] LABS: BASOPHILS % (AUTO) 0.3 % (0-1); EOSINOPHILS % (AUTO) 0 % (0-6); HEMATOCRIT 41.4 % (35.0-45.0); HEMOGLOBIN 13.1 g/dl (12.0-16.0); LYMPHOCYTES # (AUTO) 1.1 X10'3 (1.1-4.8); LYMPHOCYTES % (AUTO) 7.9 % (21-51); MEAN CORPUSCULAR HEMOGLOBIN 25.3 PG (27.0-31.0); MEAN CORPUSCULAR HGB CONC 31.7 g/dL (33.0-36.5); MEAN CORPUSCULAR VOLUME 79.7 FL (78-98); MEAN PLATELET VOLUME 10.2 FL (7.4-10.4); MONOCYTES # (AUTO) 0.8 X10'3 (0-0.9); MONOCYTES % (AUTO) 5.6 % (2-12); NEUTROPHILS # (AUTO) 11.5 X10'3 (1.8-7.7); NEUTROPHILS % (AUTO) 86.2 % (42-75); PLATELET COUNT 255 X10'3 (140-440); RED BLOOD COUNT 5.19 X10'6 (4.20-5.60); RED CELL DISTRIBUTION WIDTH 15.8 % (11.5-14.5); WHITE BLOOD COUNT 13.4 X10'3 (4.5-11.0)
[2022-02-14 08:24] LABS: ALANINE AMINOTRANSFERASE 20 U/L (12-78); ALBUMIN 4.4 G/DL (3.4-5.0); ALKALINE PHOSPHATASE 68 IU/L (46-116); ANION GAP 12 (8-16); ASPARTATE AMINO TRANSFERASE 19 U/L (10-37); BILIRUBIN,TOTAL 0.4 MG/DL (0.1-1.0); BLOOD UREA NITROGEN 13 MG/DL (7-18); BUN/CREATININE RATIO 15.1 (6.6-38.0); CALCIUM 10.3 MG/DL (8.5-10.1); CHLORIDE 102 MMOL/L (99-107); CREATININE 0.86 MG/DL (0.40-0.90); GLUCOSE 110 MG/DL (70-104); POTASSIUM 3.5 MMOL/L (3.5-5.1); SODIUM 140 MMOL/L (135-145); TOTAL CARBON DIOXIDE 26.1 MMOL/L (24-32); TOTAL PROTEIN 8.7 G/DL (6.4-8.2); eGFR 83 ML/MIN
[2022-02-14 11:03] LABS: CLARITY,URINE SLIGHTLY CLOUDY (Clear); COLOR,URINE YELLOW (Yellow); GLUCOSE, URINE NEGATIVE (Neg); KETONES,URINE >=80 mg/dl (Neg); LEUKOCYTE ESTERASE ,URINE TRACE (Neg); NITRITES, URINE NEGATIVE (Neg); OCCULT BLOOD,URINE TRACE-INTACT (Neg); PROTEIN,URINE 30 mg/dl (Neg); UROBILINOGEN,URINE 0.2 E.U/dL (0.2-1.0)
[2022-02-14 11:04] LABS: URINE HCG NEGATIVE (NEG)
[2022-02-14 11:06] LABS: UA COLLECTION TYPE CLN CATCH MIDSTREAM
[2022-02-14 11:12] LABS: BACTERIA,URINE 1+ /HPF (Neg); MUCUS STRANDS MANY /LPF (Neg); RBC,URINE 0-2 /HPF (0-2); SQUAMOUS EPITHELIAL CELL,UR MANY /LPF (FEW); WBC,URINE 30-50 /HPF (0-4)
[2022-02-14] MEDS ORDERED: diphenhydrAMINE 50 mg/ml inj IV ONE (11:20)
[2022-02-14] MEDS ORDERED: pantoprazole 40mg IV 80 MG in normal saline 100ml IV soln 100 ML IV ONE (11:20)
[2022-02-14] MEDS ORDERED: ketorolac trometh. 30mg/ml inj. IV ONE (11:20)
[2022-02-14 11:40] VITALS: BP 123/79
[2022-02-14] MEDS ORDERED: PANT40TA54 PO (11:53)
[2022-02-14] MEDS ORDERED: MECL-231 PO (11:53)
[2022-02-14] MEDS ORDERED: LORA-269 PO (11:53)
== END 2022-02-14 12:54 | disposition home or self-care (01) ==
LOC: ER 06:58
DX: K58.9 Irritable bowel syndrome, unspecified (principal); K21.9 Gastro-esophageal reflux disease without esophagitis; G89.29 Other chronic pain; M54.9 Dorsalgia, unspecified; F12.10 Cannabis abuse, uncomplicated; Z88.8 Allergy status to other drugs, medicaments and biological substances; Z79.899 Other long term (current) drug therapy
CPT/HCPCS: 36415; 76700; 80053; 81001; 81025; 85025; 96361; 96374; 96375; 99284; C9113; J1200; J1885; J2060; J2765; J3490; J7030

== ENCOUNTER 2022-02-15 05:04 | Emergency (ER) | payer BC ==
[~2022-02-15] VITALS: Ht 170.2 cm; Wt 104.5 kg
[~2022-02-15 05:04] MED LIST changes: +MECL-231 PO; +PANT40TA54 PO
[2022-02-15 05:16] VITALS: BP 120/76
== END 2022-02-15 08:34 | disposition left against medical advice (07) ==
LOC: ER 05:04
DX: R10.9 Unspecified abdominal pain (principal); R11.10 Vomiting, unspecified; Z53.21 Procedure and treatment not carried out due to patient leaving prior to being seen by health care provider

== ENCOUNTER 2022-05-28 04:29 | Emergency (ER) | payer BC ==
[~2022-05-28] VITALS: Ht 170.2 cm; Wt 92.7 kg
[2022-05-28] MEDS ORDERED: acetaminophen 325mg tablet PO ONE (05:15)
[2022-05-28] MEDS ORDERED: famotidine/PF 10 mg/ml inj IV ONE (05:15)
[2022-05-28] MEDS ORDERED: ondansetron/PF 4mg/2ml inj IV ONE ×2 (05:15→06:45)
[2022-05-28] MEDS ORDERED: normal saline 1000ML IV soln IVB ONE (05:15)
[2022-05-28 06:21] LABS: HEMOGLOBIN 12.1 g/dl (12.0-16.0); MEAN CORPUSCULAR HGB CONC 31.9 g/dL (33.0-36.5); RED CELL DISTRIBUTION WIDTH 16.1 % (11.5-14.5); WHITE BLOOD COUNT 11.5 X10'3 (4.5-11.0)
[2022-05-28 06:23] LABS: BASOPHILS % (AUTO) 0.1 % (0-1); EOSINOPHILS % (AUTO) 0 % (0-6); HEMATOCRIT 37.9 % (35.0-45.0); LYMPHOCYTES # (AUTO) 0.7 X10'3 (1.1-4.8); LYMPHOCYTES % (AUTO) 5.8 % (21-51); MEAN CORPUSCULAR VOLUME 81.4 FL (78-98); MEAN PLATELET VOLUME 10.6 FL (7.4-10.4); MONOCYTES # (AUTO) 0.5 X10'3 (0-0.9); MONOCYTES % (AUTO) 4.2 % (2-12); NEUTROPHILS # (AUTO) 10.3 X10'3 (1.8-7.7); NEUTROPHILS % (AUTO) 89.9 % (42-75); PLATELET COUNT 245 X10'3 (140-440); RED BLOOD COUNT 4.66 X10'6 (4.20-5.60)
[2022-05-28 06:27] LABS: ALANINE AMINOTRANSFERASE 15 U/L (12-78); ALBUMIN 4.3 G/DL (3.4-5.0); ALBUMIN/GLOBULIN RATIO 1.1 (1.1-1.5); ALKALINE PHOSPHATASE 60 IU/L (46-116); ANION GAP 14 (8-16); ASPARTATE AMINO TRANSFERASE 16 U/L (10-37); BILIRUBIN,TOTAL 0.4 MG/DL (0.1-1.0); BLOOD UREA NITROGEN 18 MG/DL (7-18); BUN/CREATININE RATIO 21.2 (6.6-38.0); CALCIUM 9.7 MG/DL (8.5-10.1); CHLORIDE 107 MMOL/L (99-107); CREATININE 0.85 MG/DL (0.40-0.90); GLUCOSE 110 MG/DL (70-104); LIPASE < 50 U/L (73-393); POTASSIUM 3.6 MMOL/L (3.5-5.1); SODIUM 145 MMOL/L (135-145); TOTAL CARBON DIOXIDE 24.1 MMOL/L (24-32); TOTAL PROTEIN 8.3 G/DL (6.4-8.2); eGFR 84 ML/MIN
[2022-05-28] MEDS ORDERED: metoclopramide 5 mg/ml inj IV ONE (07:10)
[2022-05-28] MEDS ORDERED: normal saline 1000ml 1,000 ML IV ONE (07:10)
[2022-05-28] MEDS ORDERED: ketorolac trometh. 30mg/ml inj. IV ONE (07:10)
[2022-05-28 08:33] LABS: BETA HCG,QUANTITATIVE < 1.0 mIU/ml
[2022-05-28] MEDS ORDERED: HYDR-3965 PO ×2 (11:04→15:59)
[2022-05-28] MEDS ORDERED: ONDA4TAB12 PO (11:04)
[2022-05-28 11:48] VITALS: BP 96/44
== END 2022-05-28 11:49 | disposition home or self-care (01) ==
LOC: ER 04:29
DX: G89.29 Other chronic pain (principal); R10.30 Lower abdominal pain, unspecified; K21.9 Gastro-esophageal reflux disease without esophagitis; M54.50 Low back pain, unspecified; F12.90 Cannabis use, unspecified, uncomplicated; Z87.19 Personal history of other diseases of the digestive system; Z88.8 Allergy status to other drugs, medicaments and biological substances
CPT/HCPCS: 36415; 74176; 80053; 83690; 84702; 85025; 96374; 96375; 96376; 99285; J1885; J2405; J2765; J3490; J7030

== ENCOUNTER 2022-05-29 11:20 | Emergency (ER) | payer BC ==
[~2022-05-29] VITALS: Ht 170.2 cm; Wt 200.0 kg
[~2022-05-29 11:20] MED LIST changes: +HYDR-3965 PO
[2022-05-29 12:30] VITALS: BP 111/53
[2022-05-29] MEDS ORDERED: LIDOcaine Viscous 15ml cup MM ONE (12:55)
[2022-05-29] MEDS ORDERED: ondansetron 4mg rapidly disintigrating tab PO STA (12:55)
[2022-05-29] MEDS ORDERED: mag hydrox/Alum hydrox/simeth 30ml oral suspension PO ONE (12:55)
[2022-05-29] MEDS ORDERED: famotidine 20mg tablet PO ONE (12:55)
== END 2022-05-29 13:43 | disposition home or self-care (01) ==
LOC: ER 11:20
DX: R10.84 Generalized abdominal pain (principal); R11.2 Nausea with vomiting, unspecified; K21.9 Gastro-esophageal reflux disease without esophagitis; F12.90 Cannabis use, unspecified, uncomplicated; G89.29 Other chronic pain; M54.50 Low back pain, unspecified; Z88.8 Allergy status to other drugs, medicaments and biological substances
CPT/HCPCS: 99283

== ENCOUNTER 2022-05-31 10:37 | Emergency (ER) | payer BC ==
[~2022-05-31] VITALS: Ht 170.2 cm; Wt 95.5 kg
[2022-05-31 11:04] LABS: EOSINOPHILS % (AUTO) 0.1 % (0-6); MEAN PLATELET VOLUME 9.5 FL (7.4-10.4); WHITE BLOOD COUNT 8.8 X10'3 (4.5-11.0)
[2022-05-31 11:06] LABS: BASOPHILS % (AUTO) 0.4 % (0-1); HEMATOCRIT 38.6 % (35.0-45.0); HEMOGLOBIN 12.8 g/dl (12.0-16.0); LYMPHOCYTES # (AUTO) 1.5 X10'3 (1.1-4.8); LYMPHOCYTES % (AUTO) 17.5 % (21-51); MEAN CORPUSCULAR HEMOGLOBIN 26.6 PG (27.0-31.0); MEAN CORPUSCULAR HGB CONC 33.2 g/dL (33.0-36.5); MEAN CORPUSCULAR VOLUME 79.9 FL (78-98); MONOCYTES # (AUTO) 0.5 X10'3 (0-0.9); MONOCYTES % (AUTO) 6.1 % (2-12); NEUTROPHILS # (AUTO) 6.7 X10'3 (1.8-7.7); NEUTROPHILS % (AUTO) 75.9 % (42-75); PLATELET COUNT 251 X10'3 (140-440); RED BLOOD COUNT 4.84 X10'6 (4.20-5.60); RED CELL DISTRIBUTION WIDTH 15.6 % (11.5-14.5)
[2022-05-31 11:07] LABS: CLARITY,URINE CLOUDY (Clear); GLUCOSE, URINE NEGATIVE (Neg); KETONES,URINE >=80 mg/dl (Neg); LEUKOCYTE ESTERASE ,URINE NEGATIVE (Neg); NITRITES, URINE POSITIVE (Neg); OCCULT BLOOD,URINE MODERATE (Neg); PROTEIN,URINE 30 mg/dl (Neg); UROBILINOGEN,URINE 0.2 E.U/dL (0.2-1.0)
[2022-05-31 11:08] LABS: URINE HCG NEGATIVE (NEG)
[2022-05-31 11:16] LABS: COLOR,URINE DARK YELLOW (Yellow); UA COLLECTION TYPE CLN CATCH MIDSTREAM
[2022-05-31 11:21] LABS: BACTERIA,URINE 4+ /HPF (Neg); MUCUS STRANDS MANY /LPF (Neg); RBC,URINE 0-2 /HPF (0-2); SQUAMOUS EPITHELIAL CELL,UR MANY /LPF (FEW); WBC,URINE 0-4 /HPF (0-4)
[2022-05-31 11:22] LABS: ALANINE AMINOTRANSFERASE 13 U/L (12-78); ALBUMIN 4.2 G/DL (3.4-5.0); ALBUMIN/GLOBULIN RATIO 1.1 (1.1-1.5); ALKALINE PHOSPHATASE 55 IU/L (46-116); ANION GAP 11 (8-16); ASPARTATE AMINO TRANSFERASE 11 U/L (10-37); BILIRUBIN,TOTAL 0.5 MG/DL (0.1-1.0); BLOOD UREA NITROGEN 13 MG/DL (7-18); BUN/CREATININE RATIO 14.1 (6.6-38.0); CALCIUM 9.7 MG/DL (8.5-10.1); CHLORIDE 106 MMOL/L (99-107); CREATININE 0.92 MG/DL (0.40-0.90); GLUCOSE 97 MG/DL (70-104); LIPASE < 50 U/L (73-393); POTASSIUM 3.4 MMOL/L (3.5-5.1); SODIUM 144 MMOL/L (135-145); TOTAL CARBON DIOXIDE 26.6 MMOL/L (24-32); TOTAL PROTEIN 7.9 G/DL (6.4-8.2); eGFR 76 ML/MIN
[2022-05-31 11:29] LABS: TRANSITIONAL EPI CELLS,URINE FEW /HPF
[2022-05-31 11:34] LABS: URIC ACID CRYSTALS FEW /HPF (NEGATIVE)
[2022-05-31] MEDS ORDERED: ondansetron/PF 4mg/2ml inj IV ONE (13:50)
[2022-05-31] MEDS ORDERED: normal saline 1000ML IV soln IVB ONE ×2 (13:50→15:20)
[2022-05-31] MEDS ORDERED: cephalexin 500mg capsule PO ONE (15:20)
[2022-05-31] MEDS ORDERED: pantoprazole 40mg Tablet.DR PO ONE (15:25)
[2022-05-31] MEDS ORDERED: LIDOcaine Viscous 15ml cup MM ONE (15:25)
[2022-05-31] MEDS ORDERED: morphine 4 MG/ML inj SYRINge IV ONE (15:25)
[2022-05-31] MEDS ORDERED: mag hydrox/Alum hydrox/simeth 30ml oral suspension PO ONE (15:25)
[2022-05-31] MEDS ORDERED: HYDR-3965 PO (17:21)
[2022-05-31] MEDS ORDERED: METO-292 PO (17:21)
[2022-05-31 18:13] VITALS: BP 146/84
== END 2022-05-31 18:20 | disposition home or self-care (01) ==
LOC: ER 10:37
DX: N39.0 Urinary tract infection, site not specified (principal); K42.9 Umbilical hernia without obstruction or gangrene; K76.89 Other specified diseases of liver; K21.9 Gastro-esophageal reflux disease without esophagitis; G89.29 Other chronic pain; F17.200 Nicotine dependence, unspecified, uncomplicated; F12.90 Cannabis use, unspecified, uncomplicated; Z79.899 Other long term (current) drug therapy; Z88.8 Allergy status to other drugs, medicaments and biological substances
CPT/HCPCS: 36415; 74176; 80053; 81001; 81025; 83690; 85025; 96361; 96374; 96375; 99285; J2270; J2405; J7030